=== PATIENT | female | born 1930 | race Caucasian/White ===

== ENCOUNTER 2018-03-22 13:20 | Emergency (ER) | payer MEDICARE ==
[2018-03-22 14:23] LABS: Bilirubin Negative (Negative); Blood, Urine Negative (Negative); Clarity CLOUDY (Clear); Glucose, Urine (Dipstick) Negative (Negative); Leukocyte Large (Negative); Nitrite Positive (Negative); Protein, Urine (Dipstick) 30 mg/dL (Neg-Trace); Urobilinogen 0.2 mg/dL (0.2-1.0); pH, Urine 5.5 (5.0-9.0)
[2018-03-22 14:25] LABS: Bacteria/HPF 4+ HPF (None Seen)
[2018-03-22 14:26] LABS: Pathc Cast-AUWi Flag 3.34 (0-2.49)
[2018-03-22 14:33] LABS: Hyaline Casts/LPF 0-3 HYALINE CAST LPF (0-3 Hyaline); RBC/HPF 0-3 HPF (0-3)
[2018-03-22 14:52] LABS: #Eosinphils 0.1 thou/uL (0.0-0.7); #Lymphocytes 0.9 thou/uL (1.20-3.40); #Monocytes 0.4 thou/uL (0.11-0.59); %Basophils 0.4 % (0.0-1.0); %Eosinophils 1.1 % (0.0-10.0); %Lymphocytes 16.5 % (21.0-51.0); %Monocytes 7.9 % (0.0-10.0); %Neutrophils 74.2 % (42.0-75.0); Hemoglobin 12.1 g/dL (12.0-16.0); Mean Corpuscular Hemoglobin 30.9 pg (27.0-31.0); Mean Corpuscular Volume 96.5 fL (78.0-98.0); Mean Platelet Volume 8.3 fL (7.4-10.4); Platelet Count 153 thou/uL (130-400); RBC Distribution Width 12.9 % (11.5-14.5); White Blood Cell (WBC) Count 5.4 thou/uL (4.8-10.8)
[2018-03-22 15:09] LABS: ALT (SGPT) 27 U/L (8-55); AST (SGOT) 34 U/L (5-34); Albumin 3.8 g/dL (3.4-4.8); Alkaline Phosphatase 58 U/L (40-150); Anion Gap 16 mmol/L (10-20); BUN (Urea Nitrogen) 40 mg/dL (9.8-20.1); Bilirubin, Total 0.4 mg/dL (0.2-1.2); Calc. Creatinine Clearance 0 mL/min (70-130); Calcium 8.8 mg/dL (7.8-10.44); Carbon Dioxide 24 mmol/L (23-31); Chloride 107 mmol/L (98-107); Estimated GFR-MDRD 39; Globulin 2.7 g/dL (2.4-3.5); Glucose 92 mg/dL (83-110); Lipase 33 U/L (8-78); Potassium 3.9 mmol/L (3.5-5.1); Protein, Total 6.5 g/dL (6.0-8.3); Sodium 143 mmol/L (136-145)
[2018-03-22] MEDS ORDERED: metroNIDAZOLE 500 MG/100 ML BAG ONE (15:12)
--- NOTE | 2018-03-22 16:32 | CT ---
CT ABDOMEN AND PELVIS WITH IV CONTRAST: Date: 03-22-18 History: Right lower quadrant abdominal pain with nausea, vomiting, and diarrhea. Comparison: 03-08-13 FINDINGS: Post-surgical changes related to median sternotomy are noted. Dense vascular calcification is seen in the visualized coronary arteries as well as involving the abdominal aorta and iliac arteries. Calcified granuloma is present at the right lung base with a few thin walled cysts, also present at t he right lung base. Post cholecystectomy changes are again present. A few punctate calcified granulomata are seen in the spleen. There is a 1.8 cm hypodense cystic structure seen in the inferior pole right kidney which is difficul t to characterize due to streak artifact from post-surgical change of the lumbar spine, probably repr esenting a cyst. There are a few subcentimeter too small to characterizer hypodense lesions in the ki dneys bilaterally. No hydronephrosis is present. The pancreas, bilateral adrenal glands, and incompletely distended urinary bladder demonstrate a norm al CT appearance. There is evidence of prior hysterectomy. A few scattered colonic diverticula are seen. The silva of portions of the colon do appear mildly thi ckened, but this is likely attributable to incomplete distention. Loops of small bowel are normal in caliber. The appendix is not definitely seen but there are no secondary signs to suggest appendicitis. Post-surgical changes are present involving the lumbar spine. There is right convex scoliosis within the thoracolumbar spine with multilevel degenerative changes noted. No free fluid, fluid collection, or lymphadenopathy is seen in the abdomen or pelvis. IMPRESSION: 1. No acute findings are seen in the abdomen or pelvis. 2. Subcentimeter too small to characterize hypodense lesions in each kidney. Hypodense lesion inferio r pole right kidney, statistically likely represents a cyst. 3. Hysterectomy. 4. Colonic diverticulosis. POS: [facility]
== END 2018-03-22 17:34 | disposition home or self-care (01) ==
LOC: ERS 13:20
DX: E86.0 Dehydration (principal); R10.9 Unspecified abdominal pain; I25.10 Atherosclerotic heart disease of native coronary artery without angina pectoris; M10.9 Gout, unspecified; I10 Essential (primary) hypertension; Z79.82 Long term (current) use of aspirin; Z79.51 Long term (current) use of inhaled steroids; Z79.891 Long term (current) use of opiate analgesic; Z79.899 Other long term (current) drug therapy
CPT/HCPCS: 74177; 80053; 81003; 81015; 83690; 85025; 87077; 87086; 87186; 87804; 96361; 96365; 96366; 96368; J1956

== ENCOUNTER 2018-05-29 08:03 | Observation (INO) | payer MEDICARE ==
[2018-05-29 08:37] LABS: #Basophils 0.1 thou/uL (0.0-0.2); #Lymphocytes 2.8 thou/uL (1.20-3.40); #Monocytes 1.1 thou/uL (0.11-0.59); #Neutrophils 4.5 thou/uL (1.40-6.50); %Basophils 0.6 % (0.0-1.0); %Eosinophils 0.5 % (0.0-10.0); %Lymphocytes 32.7 % (21.0-51.0); %Monocytes 12.8 % (0.0-10.0); %Neutrophils 53.3 % (42.0-75.0); Hemoglobin 11.4 g/dL (12.0-16.0); Mean Corpuscular HGB CONC 30.9 g/dL (32.0-36.0); Mean Corpuscular Hemoglobin 29.7 pg (27.0-31.0); Mean Platelet Volume 8.3 fL (7.4-10.4); Platelet Count 186 thou/uL (130-400); RBC Distribution Width 13.6 % (11.5-14.5); Red Blood Cell (RBC) Count 3.85 mill/uL (4.20-5.40); White Blood Cell (WBC) Count 8.5 thou/uL (4.8-10.8)
[2018-05-29] MEDS ORDERED: Diazepam 5 MG TAB ONE (08:51)
[2018-05-29 09:00] LABS: ALT (SGPT) 23 U/L (8-55); AST (SGOT) 24 U/L (5-34); Albumin 3.8 g/dL (3.4-4.8); Alkaline Phosphatase 67 U/L (40-150); Anion Gap 13 mmol/L (10-20); BUN (Urea Nitrogen) 26 mg/dL (9.8-20.1); Bilirubin, Total 0.8 mg/dL (0.2-1.2); Calc. Creatinine Clearance 0 mL/min (70-130); Calcium 9.5 mg/dL (7.8-10.44); Carbon Dioxide 25 mmol/L (23-31); Chloride 107 mmol/L (98-107); Estimated GFR-MDRD 56; Globulin 2.7 g/dL (2.4-3.5); Glucose 73 mg/dL (83-110); Potassium 3.8 mmol/L (3.5-5.1); Protein, Total 6.5 g/dL (6.0-8.3); Sodium 141 mmol/L (136-145)
[2018-05-29 09:26] LABS: Bilirubin Negative (Negative); Blood, Urine Negative (Negative); Clarity CLEAR (Clear); Glucose, Urine (Dipstick) Negative (Negative); Leukocyte Negative (Negative); Nitrite Negative (Negative); Protein, Urine (Dipstick) Trace mg/dL (Neg-Trace); Specific Gravity, Urine 1.015 (1.002-1.036); Urobilinogen 0.2 mg/dL (0.2-1.0); pH, Urine 6.5 (5.0-9.0)
--- NOTE | 2018-05-29 10:41 | CT ---
NONCONTRAST ENHANCED CT LUMBAR SPINE: History: Back pain, worse over the past two days. Technique: Axial images were obtained with coronal and sagittal reconstructions. FINDINGS: The patient has had previous fusion of the L3, L4, and L5 levels using pedicle hardware. Intervertebr al disc hardware also present at the L3-4 and L4-5 disc spaces. T12-L1: Unremarkable. L1-2: Vacuum disc changes. Disc space height loss seen. Bilateral facet hypertrophy is present. This results in mild central and lateral recess stenosis. There is moderate left and mild right sided neur al foraminal narrowing seen. L2-3: There is 6 mm of retrolisthesis of L2 on L3. Vacuum disc changes seen at this level. There is a broad based disc bulge with bilateral facet hypertrophy. This results in moderate to severe central L2-3 spinal stenosis as well as lateral recess stenosis. L3-4: There is 5.4 mm of anterolisthesis of L3 on L4. Extensive posterior facet degenerative changes and osteophytes seen. There is moderate to severe L3-4 central spinal stenosis due to the facet hyper trophy as well as the anterolisthesis of L3 on L4. The patient has posterior L4 decompression. L4-5: There is 7.5 mm of anterolisthesis of L4 on L5. Severe facet hypertrophic changes seen. There i s moderate right and mild left sided neural foraminal narrowing seen. There is no significant degree of central spinal stenosis seen. Mild bilateral neural foraminal narrowing is seen. L5-S1: Broad based central disc protrusion is seen. Facet hypertrophic changes seen. No significant d egree of central stenosis seen. The neural foramina are patent. IMPRESSION: Retrolisthesis of L2 on L3 and anterolisthesis of L3 on L4 and L4 on L5. Central stenosis seen at L2- 3 and L3-4. POS: [facility]
[2018-05-29] MEDS ORDERED: Morphine 4 MG/ML VIAL ONE (11:22)
[2018-05-29] MEDS ORDERED: Ondansetron ODT 4 MG TAB ONE (11:23)
--- NOTE | 2018-05-29 11:40 | CT ---
CT THORACIC SPINE: Date: 05/29/18 HISTORY: Pain. FINDINGS: There is diffuse bone demineralization. Thoracic spine vertebral body height is maintained. There is no fracture. Visualized soft tissue neck structures, mediastinal structures, lung parenchyma, and solid organs are grossly unremarkable. There is atherosclerosis of a nonaneurysmal aorta. Dependent atelectatic dickerson es of the lung parenchyma. Calcified lymph node is noted in the mediastinum. Bullous change in both l ower lobes. Limited evaluation of the contents of the central spinal canal and neural foramina due to technique. There is no high grade central canal stenosis. There is bilateral moderate to severe neural foraminal narrowing at T9-T10. IMPRESSION: 1. Diffuse bone demineralization. Multilevel degenerative disc disease. No high grade central canal stenosis. No evidence of fracture. 2. Moderate to severe bilateral foraminal narrowing at T9-T10. POS: [facility]
[2018-05-29] MEDS ORDERED: HYDROcodone/Acetaminophen 7.5/325 mg Tablet ONE (12:01)
[2018-05-29] MEDS ORDERED: Lidocaine 5% Patch TD SCH (19:00)
[2018-05-29 22:59] VITALS: BMI 26.9
[2018-05-30] MEDS ORDERED: Ondansetron PF 4 MG/2 ML Vial IVP PRN (00:10)
[2018-05-30] MEDS ORDERED: Morphine 4 MG/ML VIAL SLOW IVP PRN ×2 (00:11→00:12)
[2018-05-30] MEDS ORDERED: Sodium Chloride 0.9% 1,000 ML IV SCH (00:11)
[2018-05-30] MEDS: tiZANidine HCl 4 MG TAB PO PRN ×2 (05:24→20:42)
[2018-05-30] MEDS ORDERED: PROVENTIL INHALER 6.7 G (200 INHALATIONS) INH PRN (08:37)
[2018-05-30] MEDS ORDERED: Carvedilol 3.125 MG TAB PO SCH ×2 (09:00→10:30)
[2018-05-30] MEDS: HYDROcodone/Acetaminophen 7.5/325 mg Tablet PO PRN (09:03)
[2018-05-30] MEDS: Pregabalin 50 MG CAP PO SCH ×2 (10:22→20:19)
[2018-05-30] MEDS: Pilocarpine 5 MG TAB PO SCH ×3 (10:22→20:18)
[2018-05-30] MEDS: Hydroxychloroquine Sulfate 200 MG TAB PO SCH ×2 (10:23→20:19)
[2018-05-30] MEDS ORDERED: Hydroxychloroquine Sulfate 200 MG TAB PO SCH (10:30)
[2018-05-30] MEDS ORDERED: predniSONE 5 MG TAB PO SCH (10:30)
[2018-05-30] MEDS ORDERED: Pregabalin 50 MG CAP PO SCH (10:30)
[2018-05-30] MEDS ORDERED: Aspirin 81 mg Enteric Coated Tablet PO SCH (10:30)
[2018-05-30] MEDS: cycloSPORINE 0.05% Ophthalmic Droperette EA EYE SCH ×2 (11:57→20:43)
--- NOTE | 2018-05-30 12:37 | HP ---
CHIEF COMPLAINT: Back pain. 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 She has had prior surgical interventions by Dr. Lehman, here and by Dr. Grant. The patient had a history of some lumbar spinal stenosis and after some type of stabilization procedure by Dr. Grant, she was having some lateral listhesis and she reports with that he dismissed her from his care. She has been functioning at home using a walker and has had some chronic urinary incontinence. On Friday evening, the patient carried out some trash that she said was not particularly heavy, but subsequent to that, she has had progressive pain in her lower back with that becoming severe, causing some spasm and her inability to simply function and therefore, she presented to the hospital. Presently, she reports that her pain is somewhat better, but she is not nearly back to 50%. Her goal is to return home. She currently denies any radiation of pain down her legs. She has some neuropathy of her feet, but denies any new loss of function or loss of sensation. She reports that her pain in this particular setting was as bad as it was following her last stabilization procedure with Dr. Grant. PAST MEDICAL HISTORY: Also notable for macular degeneration, severe osteoarthritis requiring recent bilateral knee injections, and Sjogren disease. She has a history of coronary artery disease, chronic urinary incontinence, and hyperlipidemia. She has a history of COPD, asthma, and gastroesophageal reflux. PAST SURGICAL HISTORY: Coronary artery bypass x4 vessels, had some dehiscence of the upper sternal wound. She has had bladder suspension and a total of 4 bladder surgeries, cholecystectomy, hysterectomy, and torn ligament in her right knee requiring surgery. She also apparently had an abdominal wall abscess following 1 of her abdominal surgeries requiring incision, drainage, and secondary intention healing. FAMILY HISTORY: Two brothers of cancer. One brother of heart disease. SOCIAL HISTORY: The patient is a nonsmoker and nondrinker. She is a . She lives alone and functions reasonably well with that. She is full code and her son is her medical power of state attorney and surrogate decision maker. REVIEW OF SYSTEMS: The patient only reports some mild loose stools and decreased appetite over the last couple days. Otherwise, all systems were reviewed and all pertinent positives and negatives noted in the history of present illness. ALLERGIES: NONE. MEDICATIONS: 1. Tramadol p.r.n. 2. Aspirin 81 mg daily. 3. Xopenex p.r.n. 4. ProAir HFA p.r.n. 5. Salagen 5 mg t.i.d. 6. Lipitor 5 mg at bedtime. 7. Citracal 200 b.i.d. 8. Coreg 3.125 b.i.d. 9. Plaquenil 300 mg b.i.d. 10. Flora p.r.n. 11. Dexilant 60 mg daily. 12. Myrbetriq 25 daily. 13. Lyrica 50 mg b.i.d. 14. Prednisone 5 mg daily. 15. Tamsulosin 0.4 mg daily. 16. Restasis eye drops. PHYSICAL EXAMINATION: VITAL SIGNS: Temperature is 98.4, pulse 75, BP 118/67, respirations 16, and O2 saturation 94% on room air. GENERAL APPEARANCE: Age-appropriate female, she is in no distress. She is awake, alert, oriented, pleasant, and cooperative. HEART: Regular rate and rhythm without murmurs, gallops, or rubs. LUNGS: Clear to auscultation bilaterally. ABDOMEN: Soft, nontender, and nondistended. Positive bowel sounds. No masses. No organomegaly. EXTREMITIES: With no cyanosis, clubbing or edema. NEUROLOGIC: The patient has fairly good strength in her distal lower extremities. When examined in the bed, she has no significant loss of sensation to touch peripherally. She does have slightly diminished peripheral pulses in the feet. CT scan of the lumbar spine shows retrolisthesis of L2 on L3 and anterior listhesis of L3 on L4 and L4 on L5 with central stenosis at L2-L3 and L3-L4. T-spine CT, diffuse bone demineralization, multilevel degenerative disk disease. No high-grade central canal stenosis and [id number]-xi-[id number] bilateral foraminal stenosis, T9 and T10. IMPRESSION AND PLAN: 1. Intractable low back pain. The patient has been receiving IV pain medications and her pain is starting to settle down. She obviously has an extensive history of degenerative disease of her spine as the source of her pain. We will ask Physical Therapy to see her and see how she does getting up on her feet. We talked at length about her goals of care. Obviously, her back was not fixable at this point. No amount of therapy is going to improve that. Her goal is to get her out of pain to the degree possible and get as much function out of her body as we can. Once physical therapy has a chance to assess her and see where we are, we can make a decision as to whether she needs to stay longer or whether she will feel comfortable trying to get back home. 2. Severe canal stenosis of the lumbar spine appears to be similar to what it was several years ago. 3. Severe anterior and posterior listhesis of the lumbar vertebrae. 4. Sjogren disease. Continue with her usual home medications. 5. History of coronary artery disease. We will continue with beta blockers and aspirin. Job ID: [id number]
[2018-05-30] MEDS: Albuterol Sulfate 2.5 mg/3 ml Neb NEB SCH ×2 (15:25→23:43)
[2018-05-30] MEDS: Atorvastatin Calcium 10 MG TAB PO SCH (20:17)
[2018-05-30] MEDS: Carvedilol 3.125 MG TAB PO SCH (20:18)
[2018-05-30] MEDS: Famotidine 20 MG TAB PO SCH (20:18)
[2018-05-31] MEDS: predniSONE 5 MG TAB PO SCH (08:22)
[2018-05-31] MEDS: Pilocarpine 5 MG TAB PO SCH ×3 (08:22→21:28)
[2018-05-31] MEDS: Albuterol Sulfate 2.5 mg/3 ml Neb NEB SCH ×3 (08:22→23:15)
[2018-05-31] MEDS: Pregabalin 50 MG CAP PO SCH ×2 (08:22→20:26)
[2018-05-31] MEDS: Hydroxychloroquine Sulfate 200 MG TAB PO SCH ×2 (08:23→20:26)
[2018-05-31] MEDS: Enoxaparin Sodium 40 MG/0.4 ML SYRINGE SC SCH (08:23)
[2018-05-31] MEDS: Carvedilol 3.125 MG TAB PO SCH ×2 (08:23→20:26)
[2018-05-31] MEDS: Aspirin 81 mg Enteric Coated Tablet PO SCH (08:23)
[2018-05-31] MEDS: Famotidine 20 MG TAB PO SCH ×2 (08:23→20:26)
[2018-05-31] MEDS: Tamsulosin HCl 0.4 MG CAP PO SCH (08:23)
[2018-05-31] MEDS: HYDROcodone/Acetaminophen 7.5/325 mg Tablet PO PRN (08:38)
[2018-05-31] MEDS: cycloSPORINE 0.05% Ophthalmic Droperette EA EYE SCH ×2 (09:19→21:29)
--- NOTE | 2018-05-31 14:37 | PDOC.PN ---
- Subjective Encounter Start Date: 05/31/18 Encounter Start Time: 14:35 Ms. Fulton was seen today in follow-up of intractable back pain due to severe lumbar spinal stenosis. She says the pain is a little better, but she still is unable to get up and move around much due to severe pain. - Objective Resuscitation Status - Order Detail: 05/30/18 11:36 Resuscitation Status Routine Resuscitation Status: FULL: Full Resuscitation Discussed with: patient MAR Reviewed: Yes Vital Signs & Weight: Vital Signs (12 hours) Temp Pulse Resp BP Pulse Ox 05/31/18 12:30 97.9 F 62 16 115/54 L 93 L 05/31/18 10:06 95 05/31/18 08:22 64 16 95 05/31/18 08:16 98.1 F 73 16 178/68 H 96 Weight Weight 161 lb 9.017 oz I&O: 05/30/18 05/31/18 06/01/18 05:59 06:59 06:59 Intake Total Output Total Balance Result Diagrams: 05/29/18 08:10 05/29/18 08:10 Phys Exam - Physical Examination HEENT: PERRLA Respiratory: no wheezing, no rhonchi, clear to auscultation bilateral Cardiovascular: RRR, no significant murmur, no rub Gastrointestinal: soft, non-tender, no distention, positive bowel sounds Musculoskeletal: no edema, pulses present Neurological: non-focal Dx/Plan (1) Intractable back pain Code(s): M54.9 - DORSALGIA, UNSPECIFIED Status: Acute (2) Lumbar spinal stenosis Code(s): M48.061 - SPINAL STENOSIS, LUMBAR REGION WITHOUT NEUROGENIC BELEN Status: Chronic (3) Sjogrens syndrome Code(s): M35.00 - SICCA SYNDROME, UNSPECIFIED Status: Chronic (4) CAD (coronary artery disease) Code(s): I25.10 - ATHSCL HEART DISEASE OF [place] CORONARY ARTERY W/O ANG PCTRS Status: Chronic (5) COPD (chronic obstructive pulmonary disease) Status: Chronic - Plan * Intractable Back pain due to Lumbar Spinal stenosis- continue symptom management with medication, and PT/OT * Will screen for inpatient Rehab * Sjogren's Disease- stable * COPD- stable * CAD- stable.
[2018-05-31] MEDS: Acetaminophen 325 MG TAB PO PRN (14:40)
[2018-05-31] MEDS: Atorvastatin Calcium 10 MG TAB PO SCH (20:25)
[2018-05-31] MEDS: tiZANidine HCl 4 MG TAB PO PRN (20:27)
[2018-06-01] MEDS: Acetaminophen 325 MG TAB PO PRN ×2 (03:55→11:32)
[2018-06-01] MEDS: tiZANidine HCl 4 MG TAB PO PRN (03:55)
[2018-06-01] MEDS: Albuterol Sulfate 2.5 mg/3 ml Neb NEB SCH ×2 (08:21→14:53)
[2018-06-01] MEDS: predniSONE 5 MG TAB PO SCH (08:49)
[2018-06-01] MEDS: Carvedilol 3.125 MG TAB PO SCH (08:49)
[2018-06-01] MEDS: Aspirin 81 mg Enteric Coated Tablet PO SCH (08:50)
[2018-06-01] MEDS: Pregabalin 50 MG CAP PO SCH (08:50)
[2018-06-01] MEDS: Famotidine 20 MG TAB PO SCH (08:50)
[2018-06-01] MEDS: Tamsulosin HCl 0.4 MG CAP PO SCH (08:51)
[2018-06-01] MEDS: Hydroxychloroquine Sulfate 200 MG TAB PO SCH (08:51)
[2018-06-01] MEDS: cycloSPORINE 0.05% Ophthalmic Droperette EA EYE SCH (08:52)
[2018-06-01] MEDS: Enoxaparin Sodium 40 MG/0.4 ML SYRINGE SC SCH (08:54)
[2018-06-01] MEDS: Pilocarpine 5 MG TAB PO SCH ×2 (08:54→15:35)
--- NOTE | 2018-06-01 15:02 | PDOC.PN ---
- Subjective Encounter Start Date: 06/01/18 Encounter Start Time: 15:00 Ms. Fulton was seen today in follow-up of back pain. she says she is doing better, she was able to use the bedside commode, and sit at the side of the bed. - Objective Resuscitation Status - Order Detail: 05/30/18 11:36 Resuscitation Status Routine Resuscitation Status: FULL: Full Resuscitation Discussed with: patient MAR Reviewed: Yes Vital Signs & Weight: Vital Signs (12 hours) Temp Pulse Pulse Resp BP BP Pulse Ox 06/01/18 14:53 64 18 06/01/18 10:13 60 151/81 H 06/01/18 08:36 98.0 F 61 16 145/72 H 98 06/01/18 08:21 66 20 Weight Weight 161 lb 9.017 oz I&O: 05/31/18 06/01/18 06/02/18 06:59 06:59 06:59 Intake Total 880 Output Total 700 Balance 180 Result Diagrams: 05/29/18 08:10 05/29/18 08:10 Phys Exam - Physical Examination HEENT: PERRLA, sclera anicteric Respiratory: no wheezing, no rales, no rhonchi, clear to auscultation bilateral Cardiovascular: RRR, no significant murmur, no rub Gastrointestinal: soft, non-tender, no distention, positive bowel sounds Musculoskeletal: no edema Dx/Plan (1) Intractable back pain Code(s): M54.9 - DORSALGIA, UNSPECIFIED Status: Acute (2) Lumbar spinal stenosis Code(s): M48.061 - SPINAL STENOSIS, LUMBAR REGION WITHOUT NEUROGENIC BELEN Status: Chronic (3) Sjogrens syndrome Code(s): M35.00 - SICCA SYNDROME, UNSPECIFIED Status: Chronic (4) CAD (coronary artery disease) Code(s): I25.10 - ATHSCL HEART DISEASE OF [place] CORONARY ARTERY W/O ANG PCTRS Status: Chronic (5) COPD (chronic obstructive pulmonary disease) Status: Chronic - Plan * Intractable Back pain due to Lumbar Spinal Stenosis- improving * She has been accepted to Rehab- will transfer today.
[2018-06-01 16:45] VITALS: BP 132/59; TEMP 98.2
--- NOTE | 2018-06-02 04:28 | DIS ---
DATE OF ADMISSION: 05/29/2018 DATE OF DISCHARGE: 06/01/2018 PRIMARY CARE PHYSICIAN: Dr. Farris. DISCHARGE DIAGNOSES: 1. Intractable back pain. 2. Lumbar spinal stenosis. 3. History of Sjogren's syndrome. 4. Severe osteoarthritis. 5. Coronary artery disease. 6. Hyperlipidemia. 7. Chronic obstructive pulmonary disease. 8. Gastroesophageal reflux disease. DISCHARGE MEDICATIONS: Include: 1. Zanaflex 4 mg q.8 hours as needed. 2. Tylenol 650 mg q.4 p.r.n. 3. Tramadol 50 mg q.i.d. as needed. 4. Flomax 0.4 mg daily. 5. Restasis eyedrops twice a day. 6. Lyrica 50 mg twice daily. 7. Prednisone 5 mg daily. 8. Pilocarpine 5 mg t.i.d. 9. Myrbetriq 25 mg extended release daily. 10. Xopenex nebs q.8 as needed. 11. Plaquenil 200 mg twice a day. 12. Dor[place] 5/325 q.6. 13. Dexilant 60 mg daily. 14. Carvedilol 3.125 mg twice a day. 15. Vitamin D3 twice a day. 16. Lipitor 5 mg at bedtime. 17. Aspirin 81 mg daily. 18. ProAir 2 puffs q.4 hours as needed. PROCEDURES DONE DURING THE ADMISSION: The patient had a CT scan of the lumbar and thoracic spine that showed some diffuse bony demineralization. There was no high-grade stenosis or fracture. There was some [id number] narrowing at T9 and T10 lumbar spine showed some retrolisthesis of L2 on L3, anterolisthesis of L3 on L4 and L4 on L5 and some central stenosis seen at L2-L3 and L3-L4. CODE STATUS: Full code. ALLERGIES: NO KNOWN DRUG ALLERGIES. HOSPITAL COURSE: Ms. Fulton is a pleasant 88-year-old female, who was experiencing severe lower back pain and difficulty ambulating as a result. She was having severe mobility with almost unable to get out of the bed, that is why she called to be taken to the hospital. CT scan in the ER did not demonstrate any need for any acute surgical intervention. She was placed in observation until a bed could become available in inpatient rehab for physical therapy. Overnight, her symptoms did improve. She was able to move around the bed and use the bedside commode, and is subsequently being transferred to the inpatient rehab unit. Job ID: [id number]
== END 2018-06-01 17:13 ==
LOC: ERS 08:03 → T4-A 22:49
PROVIDERS: ADMIT Internal Medicine; ATTEND Internal Medicine
DX: M48.061 Spinal stenosis, lumbar region without neurogenic claudication (principal); M43.16 Spondylolisthesis, lumbar region; M51.36 Other intervertebral disc degeneration, lumbar region; I25.10 Atherosclerotic heart disease of native coronary artery without angina pectoris; M35.00 Sjogren syndrome, unspecified; M17.0 Bilateral primary osteoarthritis of knee; E78.5 Hyperlipidemia, unspecified; J44.9 Chronic obstructive pulmonary disease, unspecified; K21.9 Gastro-esophageal reflux disease without esophagitis; Z95.1 Presence of aortocoronary bypass graft; Z90.49 Acquired absence of other specified parts of digestive tract; Z90.710 Acquired absence of both cervix and uterus; Z79.82 Long term (current) use of aspirin; Z79.52 Long term (current) use of systemic steroids; Z79.899 Other long term (current) drug therapy; Z98.890 Other specified postprocedural states
CPT/HCPCS: 72128; 72131; 80053; 81003; 85025; 94640 ×4; 96360; 96361; 96372; 97116; 97139 ×2; 97530; 97535; 99285; G0378 ×6; J1650; J2270; J2405; J7512; J7611; Q0162

== ENCOUNTER 2018-12-23 13:33 | Emergency (ER) | payer MEDICARE ==
[2018-12-23] MEDS ORDERED: Acetaminophen 500 MG TAB ONE (14:05)
[2018-12-23] MEDS ORDERED: Dexamethasone 10 MG/ML VIAL ONE (14:05)
[2018-12-23] MEDS ORDERED: Ketorolac Tromethamine 30 MG/ML VIAL ONE (14:05)
--- NOTE | 2018-12-23 14:49 | RAD ---
3 VIEWS RIGHT ANKLE: Date: 12/23/18 COMPARISON: None. HISTORY: Right ankle pain. FINDINGS: 3 views of the right ankle show no evidence of acute fracture or dislocation. There are degenerative changes in the mid foot. No significant soft tissue swelling is seen. IMPRESSION: No evidence of acute osseous abnormality. POS: [facility]
--- NOTE | 2018-12-23 14:50 | RAD ---
Exam: Lumbar spine 3 views: HISTORY: Sciatic pain COMPARISON: Lumbar spine CT scan, 05/29/2018 FINDINGS: Stable prominent dextroscoliosis of the upper lumbar vertebral column. Laminectomy and posterior fusi on changes at L3, L4, and L5 with intradiscal prosthesis and pedicle screw fixation, stable. No acute fracture or dislocation. IMPRESSION: Stable appearing lumbar spine.
[2018-12-23] MEDS ORDERED: HYDROcodone/Acetaminophen 5/325 mg Tablet ONE (15:02)
== END 2018-12-23 15:20 | disposition home or self-care (01) ==
LOC: ERS 13:33
DX: M54.5 Low back pain (principal); M10.9 Gout, unspecified; I10 Essential (primary) hypertension; I52 Other heart disorders in diseases classified elsewhere; I25.10 Atherosclerotic heart disease of native coronary artery without angina pectoris; Z79.82 Long term (current) use of aspirin
CPT/HCPCS: 72100; 96372; J1100; J1885